=== PATIENT | female | born 1975 | race African-American/Black ===

== ENCOUNTER 2016-05-18 18:26 | Emergency (ER) | payer OTHER ==
[~2016-05-18] VITALS: Ht 165.1 cm; Wt 106.0 kg
[~2016-05-18 18:26] MED LIST: ACCUPRIL5 MG; ALPRAZOLAM0.5 MG PO; AMLODIPINE10 MG PO; AMOXICILLIN250 M1 OR; AMOXICILLIN500 MG OR; ASA LO-DOSE81 MG OR; ASPIRIN EC81 MG PO; AUGMENTIN875TAB PO; BACTRIM DS1 TAB PO; BUSPAR15 MG PO; ERY-TAB333 MG OR; FIORICET OR; FLEXERIL PO; LOPRESSOR 550 MG/TAB PO; LOPRESSOR25 M1 PO; LOPRESSOR25 MG PO; MULTIVITAM10 OR; MULTIVITAMIN PO; NEXIUM40 M1 OR; NORVASC PO; NORVASC10 M1 OR; NORVASC10 MG OR; PAROXETINE20 MG PO; PRILOSEC40 MG PO; PROTONIX20 M1 PO; PROTONIX40 MG PO; ZOFRAN ODT4 MG OR; ZOFRAN ODT8 MG SL
[2016-05-18 19:58] LABS: HEMOGLOBIN 13.2 g/dl (12.0-16.0); IMMATURE GRANULOCYTES 0.1 % (0.0-1.0); MEAN CELL VOLUME 84.2 fL CALC (80.0-100.0); MEAN CORPUSCULAR HGB 28.5 pG CALC (26.0-32.0); MEAN CORPUSCULAR HGB CONC 33.8 g/L CALC (32.0-36.0); NEUT# 4.14 thou/uL (2.00-7.15); RED BLOOD COUNT 4.63 mill/uL (4.20-5.60); RED CELL DISTRI WIDTH 14.6 % (11.5-15.5)
[2016-05-18 20:50] LABS: ALBUMIN 4.2 g/dL (3.2-5.0); ALKALINE PHOSPHATASE 90 u/l (38-126); AMYLASE 94 u/l (30-110); ANION GAP 16 (6-22 (CALC)); BILIRUBIN, TOTAL 0.6 mg/dL (0.0-1.4); BUN 11 mg/dL (7-17); BUN/CREATININE RATIO 14 (12-20 (CALC)); CALCIUM 9.4 mg/dL (8.4-10.2); CARBON DIOXIDE 22 mmol/l (22-30); CHLORIDE 107 mmol/l (95-108); CREATININE 0.8 mg/dL (0.5-1.0); GFR > 60 ML/MIN (>=60 (CALC)); GFR FOR AFR.AMER. > 60 ML/MIN (>=60 (CALC)); GLUCOSE 152 mg/dL (65-105); LIPASE 327 u/l (23-300); POTASSIUM 2.8 mmol/l (3.5-5.1); SGOT/AST 29 u/l (14-36); SGPT/ALT 30 u/l (9-52); SODIUM 142 mmol/l (137-146); TOTAL PROTEIN 8.5 g/dL (6.3-8.2)
[2016-05-18 21:02] LABS: MYOGLOBIN 31 ng/mL (0 - 62)
[2016-05-18] MEDS ORDERED: SUCRALFATE1 GM PO (22:30)
[2016-05-18] MEDS ORDERED: VITAMIN D2000 UNI2 PO (22:31)
[2016-05-18] MEDS ORDERED: METOPROL TAR25 MG PO (22:32)
[2016-05-18 22:43] LABS: URINE BILIRUBIN - DIPSTICK NEGATIVE (NEGATIVE); URINE BLOOD DIPSTICK MODERATE (NEGATIVE); URINE COLOR YELLOW; URINE GLUCOSE - DIPSTICK NEGATIVE (NEGATIVE); URINE KETONE NEGATIVE (NEGATIVE); URINE LEUK ESTERASE NEGATIVE (NEGATIVE); URINE NITRITE - DIPSTICK NEGATIVE (Negative); URINE PROTEIN - DIPSTICK 100 mg/dL (NEG-TRACE); URINE UROBILINOGEN - DIPSTICK 0.2 E.U./dL (0.2)
[2016-05-18 22:45] LABS: URINE CLARITY SLIGHT CLOUDY
[2016-05-18 22:48] LABS: BARBITURATES NEGATIVE (NEGATIVE); COCAINE NEGATIVE (NEGATIVE); METHADONE NEGATIVE (NEGATIVE); OXCYCODONE NEGATIVE (NEGATIVE); TETRAHYDROCANNABIONOL NEGATIVE (NEGATIVE); TRICYLIC ANTIDEPRESSANTS NEGATIVE (NEGATIVE)
[2016-05-18 22:53] LABS: URINE BACTERIA FEW hpf; URINE HYALINE CAST FEW lpf (NONE-RARE); URINE MUCUS FEW hpf (NONE-FEW); URINE SQUAMOUS EPITHELIAL CELL MODERATE EPI/hpf (0-FEW)
[2016-05-18] MEDS ORDERED: K-TAB20 MEQ PO (23:17)
[2016-05-18] MEDS ORDERED: CIPROFLOXACN500 MG PO (23:17)
[2016-05-18] MEDS ORDERED: ULTRAM50 M1 PO (23:17)
[2016-05-18] MEDS ORDERED: PREVACID30 M3 PO (23:17)
[2016-05-18] MEDS ORDERED: ZOFRAN ODT4 MG PO (23:17)
[2016-05-18 23:35] VITALS: BP 154/88
== END 2016-05-18 23:41 | disposition home or self-care (01) | DRG 392 ==
LOC: ED 18:26
PROVIDERS: Emergency Medicine
DX: R10.13 Epigastric pain (principal); N39.0 Urinary tract infection, site not specified; E87.6 Hypokalemia; K80.80 Other cholelithiasis without obstruction; R11.2 Nausea with vomiting, unspecified
CPT/HCPCS: Q9967; S0164

== ENCOUNTER 2017-04-07 09:01 | Emergency (ER) | payer OTHER ==
[~2017-04-07] VITALS: Ht 165.1 cm; Wt 108.2 kg
[~2017-04-07 09:01] MED LIST changes: +CIPROFLOXACN500 MG PO; +K-TAB20 MEQ PO; +METOPROL TAR25 MG PO; +PREVACID30 M3 PO; +SUCRALFATE1 GM PO; +ULTRAM50 M1 PO; +VITAMIN D2000 UNI2 PO; +ZOFRAN ODT4 MG PO
[2017-04-07] MEDS ORDERED: ZOFRAN ODT4 MG PO (10:23)
[2017-04-07] MEDS ORDERED: ANTIVERT PO (10:23)
[2017-04-07 11:03] LABS: HEMATOCRIT 44.2 % (37.0-47.0); HEMOGLOBIN 14.7 g/dl (12.0-16.0); IMMATURE GRANULOCYTES 0.3 % (0.0-1.0); MEAN CELL VOLUME 86.2 fL CALC (80.0-100.0); MEAN CORPUSCULAR HGB 28.7 pG CALC (26.0-32.0); MEAN CORPUSCULAR HGB CONC 33.3 g/L CALC (32.0-36.0); NEUT# 5.47 thou/uL (2.00-7.15); RED BLOOD COUNT 5.13 mill/uL (4.20-5.60); RED CELL DISTRI WIDTH 13.2 % (11.5-15.5)
[2017-04-07 11:28] LABS: ALBUMIN 4.5 g/dL (3.2-5.0); ALKALINE PHOSPHATASE 108 u/l (38-126); ANION GAP 17 (6-22 (CALC)); BILIRUBIN, TOTAL 0.6 mg/dL (0.0-1.4); BUN 8 mg/dL (7-17); BUN/CREATININE RATIO 10 (12-20 (CALC)); CARBON DIOXIDE 27 mmol/l (22-30); CHLORIDE 105 mmol/l (95-108); CREATININE 0.8 mg/dL (0.5-1.0); GFR > 60 ML/MIN (>=60 (CALC)); GFR FOR AFR.AMER. > 60 ML/MIN (>=60 (CALC)); POTASSIUM 3.8 mmol/l (3.5-5.1); SGOT/AST 54 u/l (14-36); SGPT/ALT 33 u/l (9-52); SODIUM 145 mmol/l (137-146)
[2017-04-07] MEDS ORDERED: FIORICET PO (11:50)
[2017-04-07 12:15] VITALS: BP 163/91
== END 2017-04-07 12:25 | disposition home or self-care (01) | DRG 149 ==
LOC: ED 09:01
PROVIDERS: Emergency Medicine
DX: R42 Dizziness and giddiness (principal); R51 Headache; I11.9 Hypertensive heart disease without heart failure; K21.9 Gastro-esophageal reflux disease without esophagitis

== ENCOUNTER 2017-08-05 17:20 | Observation (INO) | payer OTHER ==
[~2017-08-05] VITALS: Ht 165.1 cm; Wt 99.0 kg
[~2017-08-05 17:20] MED LIST changes: +ANTIVERT PO; +FIORICET PO
--- NOTE | 2017-08-05 17:32 | NUR ---
PT TO ROOM FOR EXAM
[2017-08-05 18:00] LABS: URINE BILIRUBIN - DIPSTICK NEGATIVE (NEGATIVE); URINE BLOOD DIPSTICK MODERATE (NEGATIVE); URINE CLARITY CLEAR; URINE COLOR YELLOW; URINE GLUCOSE - DIPSTICK NEGATIVE (NEGATIVE); URINE KETONE NEGATIVE (NEGATIVE); URINE LEUK ESTERASE NEGATIVE (NEGATIVE); URINE NITRITE - DIPSTICK NEGATIVE (Negative); URINE PROTEIN - DIPSTICK 30 mg/dL (NEG-TRACE); URINE UROBILINOGEN - DIPSTICK 0.2 E.U./dL (0.2)
--- NOTE | 2017-08-05 18:00 | NUR ---
PATIENT REPORTS ABD PAIN TO RUQ X1 DAY, BOWEL SOUNDS ACTIVE, TENDER UPON PALPATION TO RUQ. RATES PAIN 8/10. MEDICATED WITH 4 MG OF ZOFRAN IVP AND 30 MG OF TORADOL IVP. BLANKET GIVEN. CALL LIGHT GIVEN, INFORMED TO CALL FOR ASSISTANCE. FAMILY AT BEDSIDE, WILL CONTINUE TO MONITOR.
[2017-08-05 18:03] LABS: HEMATOCRIT 41.9 % (37.0-47.0); HEMOGLOBIN 13.9 g/dl (12.0-16.0); IMMATURE GRANULOCYTES 0.3 % (0.0-1.0); MEAN CELL VOLUME 87.3 fL CALC (80.0-100.0); MEAN CORPUSCULAR HGB CONC 33.2 g/L CALC (32.0-36.0); NEUT# 2.2 thou/uL (2.00-7.15); RED BLOOD COUNT 4.8 mill/uL (4.20-5.60); RED CELL DISTRI WIDTH 13.4 % (11.5-15.5)
[2017-08-05 18:08] LABS: URINE RBC 25-50 RBC/hpf (0-5)
[2017-08-05 18:09] LABS: URINE SQUAMOUS EPITHELIAL CELL MODERATE EPI/hpf (0-FEW)
--- NOTE | 2017-08-05 18:36 | NUR ---
PATIENT RESTING ON STRETCHER NO SIGNS OF DISTRESS NOTED. REPORTS NO RELIEF FROM PAIN. MD INFORMED.
--- NOTE | 2017-08-05 18:40 | NUR ---
REPORT GIVEN TO GALE CHOI. PATIENT IN STABLE CONDITION. CARE RELINQUISHED.
--- NOTE | 2017-08-05 18:41 | NUR ---
RECEIVED REPORT FRON ARCHANA BEASLEY. PT. RESTING ON STRETCHER, GOING TO CAT SCAN.
[2017-08-05 18:49] LABS: ALBUMIN 3.6 g/dL (3.2-5.0); ALKALINE PHOSPHATASE 102 u/l (38-126); ANION GAP 10 (6-22 (CALC)); BUN 6 mg/dL (7-17); BUN/CREATININE RATIO 8 (12-20 (CALC)); CARBON DIOXIDE 29 mmol/l (22-30); CHLORIDE 105 mmol/l (95-108); CREATININE 0.8 mg/dL (0.5-1.0); GFR > 60 ML/MIN (>=60 (CALC)); GFR FOR AFR.AMER. > 60 ML/MIN (>=60 (CALC)); LIPASE 394 u/l (23-300); POTASSIUM 3.2 mmol/l (3.5-5.1); SGPT/ALT 265 u/l (9-52); SODIUM 140 mmol/l (137-146); TOTAL PROTEIN 7.3 g/dL (6.3-8.2)
[2017-08-05 18:54] LABS: SGOT/AST 373 u/l (14-36)
--- NOTE | 2017-08-05 19:26 | NUR ---
SCANNED BUT PT. REFUSED MS RIGHT BEFORE ADMINISTRATION, DESPITE BEING EDUCATED ON MED PRIOR TO SCAN.
--- NOTE | 2017-08-05 19:31 | NUR ---
MS WASTED WITH SUPERVISIOR
--- NOTE | 2017-08-05 19:38 | NUR ---
PO TYLENOL GIVEN PER MD ORDER.
--- NOTE | 2017-08-05 20:28 | NUR ---
IV ABT. GIVEN PER MD ORDER.
--- NOTE | 2017-08-05 20:41 | NUR ---
NO S/S OF NAUSEA OR VOMITING OFFERED.
--- NOTE | 2017-08-05 20:51 | NUR ---
PT LAYING IN BED, WATCHING TV. WAITING ON TEST RESULTS FOR ADMIT/BED ASSIGNMENT.
--- NOTE | 2017-08-05 21:52 | NUR ---
Admission Note Report Given to: MARQUIS BEASLEY Transported by: Wheelchair X Stretcher Transported with: X Nurse Transporter X Patent IV O2 Banquet Attendant
--- NOTE | 2017-08-05 22:30 | NUR ---
PT. TAKEN TO CO FLOOR VIA STRETCHER, NO C/O.
--- NOTE | 2017-08-05 22:31 | NUR ---
PATIENT ARRIVED TO THE FLOOR IN STABLE CPONDITION VIA STRETCHER AND ACCOMPANIED BY GALE CHOI. PT ALERT AND ORIENTED. PT AMBULATED FROM STRETECHE TO ROOM AND SETTLED TO BED. NO APPARENT ACUTE DISTRESS NOTED AT TYHIS TIME.
--- NOTE | 2017-08-06 | NUR ---
PATIENT RESTING WITH EYES CLOSED. RESP EVEN AND UNLABORED, NO S/S OF DISTRESS NOTED, FALL PRECAUTIONS IN PLACE, AND PLAN OF CARE DISCUSSED. PATIENT INFORMED TO USE CALL LIGHT FOR ANY QUESTIONS OR CONCERNS.
[2017-08-06 00:15] VITALS: BP 145/65
--- NOTE | 2017-08-06 04:43 | NUR ---
PATIENT RESTING WITH EYES CLOSED. RESP EVEN AND UNLABORED. NO S/S OF DISTRESS NOTED.
[2017-08-06 04:45] VITALS: BP 145/95
--- NOTE | 2017-08-06 05:29 | NUR ---
CALLED FOR ADMISSION ORDERS AND PAIN MEDICATION. ORDERS WERE GIVEN FOR MORNING LABS:CBC,BMP, AND MAGNESIUM. MEDICATION ORDERS FOR MORPHINE 2MG IV Q2H PRN PAIN 7-10, ZOFRAN 4MG IV Q6H PRN NAUSEA, D/C NS@125 ML/HR, AND D5NS@125 ML/HR. [facility] CALLED DUE TO THE PATIENT HAVING A ALLERGY TO CODEINE. SPOKE WITH THE PATIENT AND SHE STAES SHE ISN'T ABLE TO TAKE MORPHINE. PATIENT CURRENTLY ISN'T IN ANY PAIN AND WILL PASS ON INFORMATION TO [facility] NURSE. RBVO WITH .
[2017-08-06 06:19] LABS: HEMOGLOBIN 12.9 g/dl (12.0-16.0); MEAN CELL VOLUME 86.3 fL CALC (80.0-100.0); MEAN CORPUSCULAR HGB 28.5 pG CALC (26.0-32.0); MEAN CORPUSCULAR HGB CONC 33.1 g/L CALC (32.0-36.0); NEUT# 1.26 thou/uL (2.00-7.15); RED BLOOD COUNT 4.52 mill/uL (4.20-5.60); RED CELL DISTRI WIDTH 13.4 % (11.5-15.5)
[2017-08-06 06:32] LABS: ANION GAP 8 (6-22 (CALC)); BUN 5 mg/dL (7-17); BUN/CREATININE RATIO 8 (12-20 (CALC)); CARBON DIOXIDE 28 mmol/l (22-30); CHLORIDE 108 mmol/l (95-108); CREATININE 0.7 mg/dL (0.5-1.0); GFR > 60 ML/MIN (>=60 (CALC)); GFR FOR AFR.AMER. > 60 ML/MIN (>=60 (CALC)); MAGNESIUM 1.5 mg/dL (1.6-2.3); POTASSIUM 3.7 mmol/l (3.5-5.1); SODIUM 139 mmol/l (137-146)
--- NOTE | 2017-08-06 07:02 | NUR ---
REPORT RECEIVED BY WILMAN . PT IS SLEEPING ON HER LEFT SIDE WITH NO S/S OF DISTRESS NOTED. CALL LIGHT IN REACH.
[2017-08-06 07:33] VITALS: BP 143/93
[2017-08-06 09:08] VITALS: BP 143/93
[2017-08-06 09:25] LABS: ALBUMIN 3.1 g/dL (3.2-5.0); TOTAL PROTEIN 6.5 g/dL (6.3-8.2)
--- NOTE | 2017-08-06 11:02 | NUR ---
ASSESSMENT DONE RESPS EVEN AND UNLABORED. PT DENIES PAIN AT THIS TIME. IVF INFUSING WELL. SAFETY PRECAUTIONS REINFORCED AND CALL LIGHT IN REACH.
--- NOTE | 2017-08-06 12:10 | NUR ---
DR. PETE AT BEDSIDE TO ASSESS PT . ORDERS RECEIVED. PT DENIES NEEDS AT THIS TIME. CALL LIGHT IN REACH.
--- NOTE | 2017-08-06 12:15 | NUR ---
DR. PETE AT BEDSIDE TO ASSESS PT. PT MOM IN ROOM. ORDERS RECEIVED. PT DENIES NEEDS AT THIS TIME. CALL LIGHT IN REACH.
--- NOTE | 2017-08-06 15:25 | NUR ---
Discharged in stable condition via Medical Transport to [facility] with staff. All belongings sent with pt.
--- NOTE | 2017-08-06 15:46 | NUR ---
REPORT GIVEN TO NURSE KAMINI FROM [facility].
== END 2017-08-06 15:22 | disposition short-term general hospital (02) | DRG 446 ==
LOC: ED 17:20 → ED-I 21:34 → ED 22:15 → MS2 22:16
PROVIDERS: Family Medicine; Nurse Practitioner; ADMIT Internal Medicine; ATTEND Internal Medicine
DX: K80.60 Calculus of gallbladder and bile duct with cholecystitis, unspecified, without obstruction (principal); I10 Essential (primary) hypertension; K21.9 Gastro-esophageal reflux disease without esophagitis; E83.42 Hypomagnesemia; E66.9 Obesity, unspecified
CPT/HCPCS: G0378; J1650; Q9967; S0164

== ENCOUNTER 2018-06-19 19:14 | Emergency (ER) | payer OTHER ==
[~2018-06-19] VITALS: Ht 165.1 cm; Wt 91.6 kg
[~2018-06-19 19:14] MED LIST changes: +ANUCORT-HC25 MG RE; +XYLOCAINE G5 ML/TUBE EX
[2018-06-19] MEDS ORDERED: TRAMADOL HYDROC50 MG PO (21:18)
[2018-06-19 22:22] VITALS: BP 176/99
== END 2018-06-19 22:14 | disposition home or self-care (01) | DRG 395 ==
LOC: ED 19:14
DX: K62.89 Other specified diseases of anus and rectum (principal); I10 Essential (primary) hypertension

== ENCOUNTER 2021-11-29 13:42 | Emergency (ER) | payer MEDICAID ==
[~2021-11-29] VITALS: Ht 165.1 cm; Wt 99.0 kg
[~2021-11-29 13:42] MED LIST changes: +TRAMADOL HYDROC50 MG PO
[2021-11-29] MEDS ORDERED: NAPROXEN500 MG PO (15:51)
[2021-11-29 17:48] VITALS: BP 143/103
== END 2021-11-29 19:09 | disposition home or self-care (01) ==
LOC: ED 13:42
DX: S96.911A Strain of unspecified muscle and tendon at ankle and foot level, right foot, initial encounter (principal); I10 Essential (primary) hypertension; K21.9 Gastro-esophageal reflux disease without esophagitis; E66.9 Obesity, unspecified; W10.9XXA Fall (on) (from) unspecified stairs and steps, initial encounter; Y92.009 Unspecified place in unspecified non-institutional (private) residence as the place of occurrence of the external cause

== ENCOUNTER 2023-02-14 09:39 | Observation (INO) | payer MEDICARE, MEDICAID ==
[2023-02-14] VITALS (17 sets, daily range): BP systolic 89–172; BP diastolic 69–111
[~2023-02-14] VITALS: Ht 165.1 cm; Wt 102.0 kg
[~2023-02-14 09:39] MED LIST changes: +NAPROXEN500 MG PO
--- NOTE | 2023-02-14 10:10 | NUR ---
PT AMBULATED TO ROOM 8 WITH STEADY GAIT, NAD NOTED, U/A COLLECTED, CHANGED TO GOWN, CALL LIGHT IN REACH, PROVIDER NOTIFIED.
[2023-02-14] MEDS ORDERED: LORTAB 5/3255 MG PO (10:16)
[2023-02-14 10:50] LABS: BASO% 0.2 % (0-3); EOS% 0.2 % (0-8); HEMATOCRIT 41.2 % (37.0-47.0); HEMOGLOBIN 13.2 g/dl (12.0-16.0); IMMATURE GRANULOCYTES 0.2 % (0.0-5.0); LYMPH% 30.8 % (15-41); MEAN CELL VOLUME 88.8 fL CALC (80.0-100.0); MEAN CORPUSCULAR HGB 28.4 pG CALC (26.0-32.0); MONO% 9.3 % (2-13); NEUT# 3.24 thou/uL (2.00-7.15); NEUT% 59.3 % (42-76); RED BLOOD COUNT 4.64 mill/uL (4.20-5.60); RED CELL DISTRI WIDTH 13.8 % (11.5-15.5)
[2023-02-14 10:52] LABS: URINE BILIRUBIN - DIPSTICK Negative (NEGATIVE); URINE BLOOD DIPSTICK Moderate (NEGATIVE); URINE GLUCOSE - DIPSTICK Negative (NEGATIVE); URINE KETONE Negative (NEGATIVE); URINE NITRITE - DIPSTICK Negative (Negative); URINE PROTEIN - DIPSTICK 30 mg/dL (NEG-TRACE); URINE UROBILINOGEN - DIPSTICK 0.2 E.U./dL (0.2)
[2023-02-14 10:59] LABS: URINE COLOR Yellow; URINE LEUK ESTERASE Small (NEGATIVE)
[2023-02-14 11:00] LABS: URINE BACTERIA FEW hpf; URINE EPITHELIAL CELLS MODERATE EPI/hpf (0-FEW)
[2023-02-14 11:00] LABS: ALBUMIN 4.5 g/dL (3.2-5.0); ALKALINE PHOSPHATASE 93 u/l (38-126); ANION GAP 16 (6-22 (CALC)); BILIRUBIN, TOTAL 0.6 mg/dL (0.02-1.3); BUN 12 mg/dL (7-17); BUN/CREATININE RATIO 15 (12-20 (CALC)); CARBON DIOXIDE 25 mmol/l (22-30); CHLORIDE 104 mmol/l (95-108); CREATININE 0.8 mg/dL (0.5-1.0); GFR FOR AFR.AMER. > 60 ML/MIN (>=60 (CALC)); GFR OTHER RACES > 60 ML/MIN (>=60 (CALC)); POTASSIUM 3.5 mmol/l (3.5-5.1); SGOT/AST 42 u/l (14-36); SODIUM 142 mmol/l (137-146)
--- NOTE | 2023-02-14 11:28 | NUR ---
Reassessment of patient completed. No distress noted. VSS, PT VOICED C/O NAUSEA, WILL ADVISE PROVIDER FOR TX ORDERS, CALL LIGHT IN REACH, REQUESTED WARM BLANKET AND GIVEN.
--- NOTE | 2023-02-14 11:44 | NUR ---
IN ROOM TO MEDCIATE PT PER EMAR FOR C/O NAUSEA, VSS, NAD NOTED, A&O X 3, TALKING ON PHONE, CALL LIGHT IN REACH, ADVISED WAIT TIME.
--- NOTE | 2023-02-14 12:45 | NUR ---
NURSE JTRN IN ROOM TO MEDICATE PT PER EMAR, VSS, NAD NOTED, CALL LIGHT IN REACH, LIGHTS DIMMED.
--- NOTE | 2023-02-14 14:01 | NUR ---
IN ROOM TO CHECK PT, NAD NOTED, VSS, I/V FLUIDS RUNNING PER ORDERS, CALL LIGHT IN REACH.
--- NOTE | 2023-02-14 14:54 | NUR ---
IN ROOM TO START I/V ABX PER EMAR, SITTING UP IN BED TALKING ON PHONE, NAD NOTED, VSS, CALL LIGHT IN REACH.
--- NOTE | 2023-02-14 15:27 | NUR ---
IN ROOM TO START 2ND ABX PER EMAR, NAD NOTED, VOICED NO NEEDS AT THIS TIME, CALL LIGHT IN REACH.
--- NOTE | 2023-02-14 16:30 | NUR ---
Reassessment of patient completed. No distress noted. VSS, SITTING UP IN BED, CALL LIGHT IN REACH.
--- NOTE | 2023-02-14 17:18 | NUR ---
Reassessment of patient completed. No distress noted. VSS, NO NEEDS AT THIS TIME, ADVISED DINNER MEAL HAS BEEN ORDERED ABLE TO GET SOUP REQUESTED, CALL LIGHT IN REACH.
--- NOTE | 2023-02-14 18:08 | NUR ---
REPORT CALLED TO [facility] ROOM 263 NURSE SHAWN LAURENT, NAD NOTED, VSS, SITTING UP IN BED, TALKING ON PHONE, CALL LIGHT IN REACH.
--- NOTE | 2023-02-14 18:25 | NUR ---
PT TO [facility] ROOM 269 VIA W/C WITH ALL BELONGINGS, NAD NOTED, VSS,.
--- NOTE | 2023-02-14 18:29 | NUR ---
PT ARRIVED FROM ER VIA WHEELCHAIR, ABLE TO AMBULATE FROM WHEELCHAIR INTO BED. REPORT RECEIVED FROM ER NURSE REINA. PT SETTLED INTO BED, NO S/S OF DISTRESS. DENIES ANY PAIN AT THIS TIME. CALL LIGHT WITHIN REACH AND SAFETY PRECAUTIONS IN PLACE.
--- NOTE | 2023-02-14 22:36 | NUR ---
RECEIVED SHIFT REPORT AT START OF SHIFT. PT RECEIVED TO UNIT AT 1837. PT IS ALERT AND ORIENTED X 3. C/O RT SIDED FLAnk pain. Pt refused pain med at this time. denies N/V. BP ELEVATED. DR SERRATO aware. new order for lopressor 50mg po. admission assessment completed. iv fluids infusing as ordered. top bed rails up. bed is locked. call light in reach.
[2023-02-15 00:44] VITALS: BP 124/74
--- NOTE | 2023-02-15 02:58 | NUR ---
pt sleeping well. iv fluids infusing as ordered. VSS Respirations are even, non labored. safety precations maintained call light in reach
[2023-02-15 04:23] VITALS: BP 122/78
--- NOTE | 2023-02-15 05:26 | NUR ---
PT HAS REMAINED NPO PER DR SERRTAO. IV FLUIDS INFUSING ORDERED. PT SLEEPING AT PRESENT. SAFETY PRECAUTIONS MAINTAINED CALL LIGHT IN REACH
[2023-02-15 06:05] LABS: HEMATOCRIT 36.5 % (37.0-47.0); HEMOGLOBIN 11.8 g/dl (12.0-16.0); MEAN CELL VOLUME 88.8 fL CALC (80.0-100.0); MEAN CORPUSCULAR HGB 28.7 pG CALC (26.0-32.0); MEAN CORPUSCULAR HGB CONC 32.3 g/dL CAL (32.0-36.0); RED BLOOD COUNT 4.11 mill/uL (4.20-5.60); RED CELL DISTRI WIDTH 13.7 % (11.5-15.5)
[2023-02-15 06:34] LABS: ALKALINE PHOSPHATASE 85 u/l (38-126); ANION GAP 11 (6-22 (CALC)); BILIRUBIN, TOTAL 0.6 mg/dL (0.02-1.3); BUN 9 mg/dL (7-17); BUN/CREATININE RATIO 14 (12-20 (CALC)); CARBON DIOXIDE 25 mmol/l (22-30); CHLORIDE 108 mmol/l (95-108); CREATININE 0.7 mg/dL (0.5-1.0); GFR FOR AFR.AMER. > 60 ML/MIN (>=60 (CALC)); GFR OTHER RACES > 60 ML/MIN (>=60 (CALC)); MAGNESIUM 1.8 mg/dL (1.6-2.3); SGOT/AST 33 u/l (14-36); SODIUM 141 mmol/l (137-146)
[2023-02-15 06:41] LABS: ALBUMIN 3.5 g/dL (3.2-5.0); TOTAL PROTEIN 6.9 g/dL (6.3-8.2)
[2023-02-15 07:21] VITALS: BP 129/78
--- NOTE | 2023-02-15 07:50 | NUR ---
PT AOX3, BP 129/75 HR75, PT REPORTS PAIN AT A 4 ON A 0-10 PAIN SCALE BUT REFUSING ANYTHING FOR PAIN AT THIS TIME.
[2023-02-15 08:10] VITALS: BP 129/78
[2023-02-15 08:52] VITALS: BP 129/78
--- NOTE | 2023-02-15 10:35 | NUR ---
AT BEDSIDE DISCUSSING POC WITH PT.
[2023-02-15] MEDS ORDERED: LORTAB 5/3255 MG PO (11:24)
[2023-02-15] MEDS ORDERED: CIPROFLOXACN500 MG PO (11:25)
--- NOTE | 2023-02-15 13:01 | NUR ---
REVIEWED DISCHARGE INSTRUCTIONS WITH PT. ALEXANDREA SNIDER.
--- NOTE | 2023-02-15 13:08 | NUR ---
PT LEFT THE FLOOR VIA WHEELCHAIR WITH BELNGINGS IN HAND.
== END 2023-02-15 13:08 | disposition home or self-care (01) ==
LOC: ED 09:39 → ED-I 16:30 → ED 16:48 → MS2 16:49
PROVIDERS: Emergency Medicine; ADMIT Student in an Organized Health Care Education/Training Program; ATTEND Student in an Organized Health Care Education/Training Program
DX: N39.0 Urinary tract infection, site not specified (principal); R93.2 Abnormal findings on diagnostic imaging of liver and biliary tract; I10 Essential (primary) hypertension; K21.9 Gastro-esophageal reflux disease without esophagitis; E66.9 Obesity, unspecified; Z93.3 Colostomy status; Z85.048 Personal history of other malignant neoplasm of rectum, rectosigmoid junction, and anus
CPT/HCPCS: J1650; Q9967

== ENCOUNTER 2023-10-04 16:38 | Emergency (ER) | payer MEDICARE ==
[2023-10-04] VITALS (11 sets, daily range): BP systolic 130–148; BP diastolic 82–100
[~2023-10-04] VITALS: Ht 165.1 cm; Wt 105.0 kg
[~2023-10-04 16:38] MED LIST changes: +LORTAB 5/3255 MG PO
[2023-10-04] MEDS ORDERED: SODIUM CHLORIDE 0.9% 1,000 ML IV ONE (16:55)
[2023-10-04] MEDS ORDERED: ONDANSETRON HCl 4 MG/2 ML SDV IV ONE ×2 (17:00→19:50)
[2023-10-04 17:44] LABS: CREATININE 0.9 mg/dL (0.5-1.0)
[2023-10-04 18:06] LABS: BASO% 0.1 % (0-3); HEMATOCRIT 39.3 % (37.0-47.0); HEMOGLOBIN 12.8 g/dl (12.0-16.0); IMMATURE GRANULOCYTES 0.1 % (0.0-5.0); LYMPH% 11.6 % (15-41); MEAN CELL VOLUME 87.9 fL CALC (80.0-100.0); MEAN CORPUSCULAR HGB 28.6 pG CALC (26.0-32.0); MEAN CORPUSCULAR HGB CONC 32.6 g/dL CAL (32.0-36.0); MONO% 6.6 % (2-13); NEUT# 5.7 thou/uL (2.00-7.15); NEUT% 81.6 % (42-76); RED BLOOD COUNT 4.47 mill/uL (4.20-5.60); RED CELL DISTRI WIDTH 14.3 % (11.5-15.5)
[2023-10-04 18:09] LABS: ALBUMIN 4.4 g/dL (3.2-5.0); BILIRUBIN, TOTAL 1.2 mg/dL (0.02-1.3); POTASSIUM 3.1 mmol/l (3.5-5.1); TOTAL PROTEIN 8.5 g/dL (6.3-8.2)
[2023-10-04] MEDS ORDERED: POTASSIUM CHLORIDE 10MEQ 50 ML IV ONE (18:20)
[2023-10-04] MEDS ORDERED: OSELTAMIVIR PHOSPHATE 75 MG/TAB CAP PO ONE (19:30)
[2023-10-04 19:32] LABS: URINE BILIRUBIN - DIPSTICK Negative (NEGATIVE); URINE BLOOD DIPSTICK Large (NEGATIVE); URINE GLUCOSE - DIPSTICK Negative (NEGATIVE); URINE KETONE Negative (NEGATIVE); URINE LEUK ESTERASE Trace (NEGATIVE); URINE NITRITE - DIPSTICK Negative (Negative); URINE PH 6.5 (4.5-8.0); URINE PROTEIN - DIPSTICK 100 mg/dL (NEG-TRACE); URINE SPECIFIC GRAVITY 1.025; URINE UROBILINOGEN - DIPSTICK 0.2 E.U./dL (0.2)
[2023-10-04 19:34] LABS: URINE COLOR Yellow
[2023-10-04 19:42] LABS: URINE SQUAMOUS EPITHELIAL CELL FEW EPI/hpf (0-FEW); URINE WBC 0-2 WBC/hpf (0-5)
[2023-10-04] MEDS ORDERED: POTASSIUM CHLORIDE 20 MEQ/TAB PO ONE (19:45)
[2023-10-04] MEDS ORDERED: KETOROLAC TROMETHAMINE 30 MG/ML SDV IV ONE (19:50)
[2023-10-04] MEDS ORDERED: ZOFRAN4 MG/TAB PO (20:09)
[2023-10-04] MEDS ORDERED: TAM75CAP PO (20:09)
== END 2023-10-04 20:20 | disposition home or self-care (01) ==
LOC: ED 16:38
PROVIDERS: Nurse Practitioner
DX: A08.4 Viral intestinal infection, unspecified (principal); J10.1 Influenza due to other identified influenza virus with other respiratory manifestations; E87.6 Hypokalemia; I10 Essential (primary) hypertension; K21.9 Gastro-esophageal reflux disease without esophagitis; E66.9 Obesity, unspecified; Z85.038 Personal history of other malignant neoplasm of large intestine; Z20.822 Contact with and (suspected) exposure to COVID-19